=== PATIENT | female | born 1995 ===

== ENCOUNTER 2018-01-02 02:03 | Inpatient (IN) ==
[~2018-01-02 02:03] MED LIST: Famotidine 20 MG/2 ML VIAL IVP PRN; Naloxone 0.4 MG/ML INJ IVP PRN; Ondansetron 4 MG/2 ML VIAL IVP PRN; Ringers Solution, Lactated 1,000 ML ONE
[2018-01-02] MEDS ORDERED: CeFAZolin Syr 3,000MG/30 ML 3,000 MG/30 ML SYRINGE IVPB ONE (02:06)
[2018-01-02] MEDS ORDERED: Oxytocin 20 units/ LR 1000 mL 20 UNIT/1,000 ML BAG IVC ONE (02:06)
--- NOTE | 2018-01-02 02:12 | OB/GYN History & Physical ---
Date of Encounter: 01/02/18 Time of Encounter: 02:07 Assessment and Plan (1) Rh negative status during in third trimester Current visit: Yes Status: Acute Rhogam evaluation after delivery (2) Variable heart rate decelerations, antepartum Current visit: Yes Status: Acute IV bolus started Patient repositioned Dr. Goncalves notified (3) 39 weeks gestation of Current visit: No Status: Acute admit for delivery History of Present Illness Chief complaint: contractions HPI: Ms. Longo is a 22 year old female at 39w0d presents to labor and delivery with complaints with contractions that have continued since yesterday. Patient denies LOF or VB. Patient reports +FM. Patient reports she last ate at 1999. On admission recurrent variables noted with FHR dropping down to 90's. Irregular contractions noted. SVE per RN . Dr. Goncalves notified. Blood type: O Negative Rubella: Immune Hep B: Nonreactive GBS: Negative Past Med Surg Social Fam HX - Past Medical History Source: patient Medical history: no medical history Psychiatric history: no psych history - Past Surgical History Surgical History: other (tonsilectomy and cyst removed from neck) - Social History Smoking Status: Never smoker Alcohol use: none Drug use: none Current living situation: Home - Independent Activity Level: Independent ambulation Recent Out of Country Travel Within the Last 8 Weeks: No Exposure or Possible Exposure to Illness During Travel: No - Family History Father Adopted: No Living Status: Still Living Hx Family Endocrine Disorder: Yes (diabetes) Obstetrical History - Pregnancies : 1 Para: 0 Term: 0 : 0 Ab's: 0 Livin Medications and Allergies Vit Calc,Iron,Folic [ Vitamins] 1 tab PO DAILY 12/31/17 [ History] 3 Allergy/AdvReac Type Severity Reaction Status Date / Time No Known Allergies Allergy Verified 12/31/17 16:22 Review of System OB - Constitutional Constitutional ROS IM: no chills, no fever(s), no headache(s) - Cardiovascular Cardiovascular: no chest pain, no palpitations, no syncope - Respiratory Respiratory: no cough - Gastrointestinal Gastrointestinal: cramping, no abdominal pain, no constipation, no diarrhea, no heartburn, no nausea, no vomiting - Genitourinary Genitourinary: no abnormal vaginal bleeding, no dysuria, no flank pain, no urinary frequency, no urinary incontinence, no urinary urgency Exam - Constitutional Constitutional: well developed, well nourished, average body habitus - HEENT HEENT: Normocephaly, Mucus Membranes Moist - Neck Neck exam: full ROM, supple - Lungs Respiratory exam: CTAB - Cardiovascular Cardiovascular exam: RRR, +S1, +S2 - Abdomen Abdomen: Present: bowel sounds normal, gravid, non tender - Extremities Extremities exam: full ROM, normal capillary refill Deep Tendon Reflex Grade: 2+ Normal - Cervix Dilation: 1 Effacement: 80 Station: 0 - Uterus Uterus exam: Present: normal size, normal contour - Anus/Rectum Anus/Rectum: Present: normal perianal skin - Comments Comments: FHR baseline 150 bpm moderate variability with variables Results All other labs normal. - VTE Reasons for not Prescribing Prophylaxis: Treatment not Indicated - Low risk for VTE
[2018-01-02] MEDS ORDERED: Oxytocin 20 units/ LR 1000 mL 20 UNIT/1,000 ML BAG IVC SCH ×3 (02:15→04:16)
[2018-01-02] MEDS ORDERED: Ringers Solution, Lactated 1,000 ML IVC SCH ×2 (02:15→04:16)
[2018-01-02] MEDS ORDERED: Metoclopramide 10 MG/2 ML VIAL IVP ONE (02:32)
[2018-01-02] MEDS ORDERED: *HR* FentaNYL (PF) 100 MCG/2 ML VIAL ONE (02:35)
[2018-01-02] MEDS ORDERED: *HR* Propofol 200 MG/20 ML VIAL IVP ONE (02:35)
--- NOTE | 2018-01-02 02:39 | OB Labor Progress Note ---
Date of Encounter: 01/02/18 Time of Encounter: 02:30 Labor Progress Note - Subjective Subjective: patient continues to have decelerations but we could not see the contractions we did perform AROM and meconium was noted, she was internalized and she was noted to be be having contractions every 2 -3 min with repetitive late decelerations with tachycardia, emergent section called - Cervix Cervix: /-3 AROM mec fluid noted - Heart Tones Heart Tones: FHT's 160 with loss of variability with repetitive late decelerations - [place]: contractions every 2 min after IUPC placed - Plan Plan: prep for stat section
--- NOTE | 2018-01-02 02:59 | Anesthesia Evaluation PreOp ---
Date of Encounter: 01/02/18 Time of Encounter: 02:35 - Past History Planned Operation: Emergency Cardiac History: Denies any Significant Hx Pulmonary History: Denies Any Significant HX GRAIN BROKER AND MARKET OPERATOR History: Denies Any Significant HX Other Medical History: Denies Any Significant HX Anesthesia History: No Prior Anesthetic Complications, Past Anesthesia : Yes (, 39+2 weeks) Alcohol Use: none Drug use: none Medications and Allergies Vit Calc,Iron,Folic [ Vitamins] 1 tab PO DAILY 12/31/17 [ History] 3 Allergy/AdvReac Type Severity Reaction Status Date / Time No Known Allergies Allergy Verified 12/31/17 16:22 - Meds/Allergy Pre-op Review Medications Reviewed: Yes Allergies Reviewed: Yes Beta Blockers on Current Med List: No Anesthesia Exam Height: 5'4'' Weight: 123 kg NPO (# of Hours): 5.5 - HEENT Mallampati: III Teeth: Normal Oral Opening: Greater than 3 - GRAIN BROKER AND MARKET OPERATOR LOC: Oriented GRAIN BROKER AND MARKET OPERATOR Motor: Normal RUE, Normal LUE, Normal RLE, Normal LLE, Normal Face GRAIN BROKER AND MARKET OPERATOR Sensory: Normal: RUE, LUE, RLE, LLE, Face - Cardiac Rhythm: Regular Murmur: None - Pulmonary Breath Sounds: bilateral Clear Respiratory Effort: Symmetrical Anesthesia Assess/Plan ASA Score: 2, E Modified Torres Scale for Level of Consciousness: Cooperative, oriented, and tranquil Anesthetic Plan: General Monitoring Plan: Standard Monitors Recovery Plan: PACU
[2018-01-02] MEDS ORDERED: MORPHINE SUL Oral CONC 10 MG/0.5 ML ORAL.SYG SL PRN (03:13)
[2018-01-02] MEDS ORDERED: *HR* OxyCODONE Immed Rel 5 MG TABLET PO PRN (03:13)
[2018-01-02] MEDS ORDERED: Bupivacaine-MPF 0.25% 10 ML VIAL ONE (03:21)
[2018-01-02] MEDS ORDERED: *HR* Succinylcholine 200 MG/10 ML VIAL IVP ONE (03:23)
[2018-01-02] MEDS ORDERED: Dexamethasone 4 MG/ML VIAL ONE (03:23)
[2018-01-02] MEDS ORDERED: Ondansetron 4 MG/2 ML VIAL ONE (03:23)
[2018-01-02] MEDS ORDERED: Ketorolac 30 MG/ML VIAL ONE (03:24)
--- NOTE | 2018-01-02 03:43 | OB/GYN Procedure Note ---
Section - Date of procedure: 01/02/18 Preop diagnosis: other (Intrauterine at 39-2/7 weeks, category 3 strip ) Post-op diagnosis: same Procedure: primary low transverse Surgeon: Cy Goncalves Estimated blood loss (cc): 1,000 Was there an specimen preparation assistant present: No Anesthesiologist: Brennen Anthony Tapping Machine Operator: Clifton Payne Anesthesia Type: General section complications: none Disposition: L&D Recovery Room Specimens: Placenta (With incisional nevi) - (s) Infant A Delivery Date: 01/02/18 Delivery Time: 02:53 Presentation: vertex Position: LUBA Route of delivery: other ( section) Gender: Female Viability: Viable Pounds: 7 Ounces: 7 Gram Weight: 3.385 kg at 1 minute: 1 at 5 minutes: 6 at 10 minutes: 8 Shoulder Dystocia: not encountered Specimens collected: cord blood, venous cord gases, arterial cord gases Placenta: spontaneous Cord: nuchal cord, 3 umbilical vessels - Narrative Narrative: Patient is a 22-year-old 1 para 0 at 39-2/7 weeks who presents to labor and delivery with complaint of contractions every 10 minutes. Patient been seen day before with similar complaints of decreased movement NST was reactive she was making no cervical change she was discharged home she called the office earlier today with complaints of vaginal spotting and is having contractions she was advised if things are getting more uncomfortable to come back showing delivery. Patient states it is not get more uncomfortable so this evening and she decided to come back on them. Upon arrival to labor and delivery she was noted have repetitive decelerations but we could not tell what type they were because we could not shredder picker her contraction patent due to body habitus patient was wanted 2 cm we were able to artificially rupture her we was noted she had meconium and she was internalized she was noted at this time to be having what appeared to be repetitive late decelerations and heart tones were in the 160s with loss of [id number] variability. We did advise the patient she would need a section we were waiting for anesthesia to arrive patient started having very deep decelerations and a stat section was called. Procedure: Patient was taken the operating room where patient was placed in dorsal supine position she was prepped with Betadine then draped was applied. Timeout was then obtained and general anesthesia was administered. Once asleep a Pfannenstiel incision was then made an elliptical incision around a mole that was in the location of her incision. The incision was then carried down through the underlying tissue to the fascia was identified this was then extended laterally with the Diaz scissors. The superior and inferior edges the fascia were grasped tented up dissected off the rectus muscles. Rectus muscles were in midline parietal peritoneum was identified tented up and entered sharply. This is extended superiorly and inferiorly with Metzenbaum scissors bladder blade was inserted the vesicouterine peritoneum was identified tented up and entered sharply. This is extended laterally and the bladder flap was created digitally. The lower uterine segment and was incised with a scalpel and extended laterally with digital manipulation. The 's head was then delivered through the nuchal cord 1 loose and reduced the was fully delivered cord was clamped and cut and was handed off to waiting pediatric team. Cord gases and blood were then collected and placenta was then spontaneously delivered with a three-vessel cord. The uterus was exteriorized cleaned of all clots and debris then the lower uterine segment was closed using 0 Vicryl in a running locking stitch by a 2 layer closure. Good hemostasis gutters were cleaned of all clots and debris then copiously irrigated. The fascia was closed using a #1 stratafix in a running stitch subcutaneous tissue was closed using an 0 chromic in a running stitch and the skin was closed using a 4-0 Vicryl in a subcuticular manner. A PRIMEO dressing was applied and the patient was taken to the recovery room in stable condition. All needles and sponge counts were correct 3 she did receive preoperative antibiotics and she will be continued on for 24 hours postsurgery.
[2018-01-02] MEDS ORDERED: *HR* HYDROmorphone 20 MG/20 ML PCA IVC PRN (04:16)
[2018-01-02] MEDS ORDERED: Simethicone 80 MG TAB.CHEW PO PRN (04:16)
[2018-01-02] MEDS ORDERED: Sennosides 8.6 MG TABLET PO PRN (04:16)
[2018-01-02] MEDS ORDERED: Ondansetron 4 MG/2 ML VIAL IVP PRN (04:16)
[2018-01-02] MEDS ORDERED: Rho Immune Globulin 1,500 UNIT SYRINGE IM ONE (04:16)
[2018-01-02] MEDS ORDERED: Metoclopramide 10 MG/2 ML VIAL IVP PRN (04:16)
[2018-01-02] MEDS: *HR* OxyCODONE/APAP 5/325 TABLET PO PRN ×2 (16:51→21:33)
[2018-01-02] MEDS: ceFAZolin 2,000 MG in Water for inj. (sterile) 20 ML IVP SCH (21:33)
[2018-01-03] MEDS: *HR* OxyCODONE/APAP 5/325 TABLET PO PRN ×3 (01:24→22:54)
[2018-01-03] MEDS: Ibuprofen 600 MG TABLET PO PRN ×3 (01:24→16:35)
[2018-01-03 04:04] LABS: Basophils % 0.3 %; Eosinophils % 0.2 %; Hematocrit 29.9 % (35.3-44.9); Hemoglobin 9.7 g/dL (11.5-15.4); Immature Granulocytes % 0.5 % (0-4); Lymphocytes # 2.1 K/mcL (0.6-4.6); Lymphocytes % 18.6 %; Mean Corpuscular HGB Conc 32.4 g/dL (31.6-35.5); Mean Corpuscular Volume 89.5 fL (83.0-100.0); Mean Platelet Volume 11.9 fL (9.4-12.4); Monocytes # 0.9 K/mcL (0.0-1.3); Monocytes % 8.2 %; Neutrophils # 8.3 K/mcL (1.6-8.9); Platelet Count 169 K/mcL (140-400); Red Blood Count 3.34 M/mcL (3.82-4.97); Red Cell Distribution Width 14.3 % (11.5-14.5); Segmented Neutrophils % 72.2 %
[2018-01-03] MEDS: ceFAZolin 2,000 MG in Water for inj. (sterile) 20 ML IVP SCH (06:05)
--- NOTE | 2018-01-03 09:33 | OB/GYN Progress Note ---
Date of Encounter: 01/03/18 Time of Encounter: 09:31 - Assessment and Plan (1) Status post section Current Visit: Yes Status: Acute Stable postop day 1 Continue current management Anticipate DC tomorrow Subjective - Subjective Interval history: Vision state feels well. Pain well managed on by mouth pain medication, tolerating by mouth diet, voiding without difficulty. Patient reports: appetite normal, pain well controlled, ambulating normally : doing well Objective - Vital Signs Latest vital signs: Vital Signs Temp Pulse Pulse Resp BP Pulse Ox 01/03/18 08:10 97.3 F L 71 12 93/58 97 01/02/18 20:29 97.9 F 92 16 95/60 97 01/02/18 17:30 97.9 F 89 16 103/70 01/02/18 13:18 98.0 F 88 16 114/77 01/02/18 09:48 97.4 F L 86 86 16 112/74 97 Intake and Output 01/02/18 01/03/18 01/03/18 23:59 07:59 15:59 Intake Total 20 / 20 20 / 20 300 / 300 Output Total 800 / 800 1100 / 1100 Balance -780 / -780 -1080 / -1080 300 / 300 Intake: IV Fluids 20 / 20 20 / 20 Ancef 2,000 MG In Water for inj 20 / 20 20 / 20 . (sterile) 20 ML @ 200 mls/hr IVP Q8H [facility] Rx#:[id number] Oral 300 / 300 Output: Catheter 800 / 800 1100 / 1100 - Exam Lungs: bilateral: normal Chest: Normal S1, Normal S2 Extremities: Present: normal Abdomen: Present: normal appearance Incision: Present: dressed Uterus: Present: firm Comments: fundus u-1 - Labs Labs: Laboratory Results - last 24 hr 01/02/18 01/03/18 03:30 03:51 WBC 11.4 H RBC 3.34 L Hgb 9.7 L Hct 29.9 L MCV 89.5 MCH 29.0 MCHC 32.4 RDW 14.3 Plt Count 169 MPV 11.9 Immature Gran % 0.5 Seg Neutrophils % 72.2 Lymphocytes % 18.6 Monocytes % 8.2 Eosinophils % 0.2 Basophils % 0.3 Neutrophils # 8.3 Lymphocytes # 2.1 Monocytes # 0.9 Eosinophils # 0.0 Basophils # 0.0 Screen NEGATIVE Baby's Blood Type O RH POSITIVE Mother's Blood Type O RH NEGATIVE Rhogam Indicated YES Rhogam Req for Mother 1
[2018-01-03] MEDS: Prenatal Vit/FA 1 EACH TABLET PO SCH (10:15)
[2018-01-03] MEDS ORDERED: Rho Immune Globulin 1,500 UNIT SYRINGE IM ONE (13:33)
[2018-01-03] MEDS: CeFAZolin Premix DUPLEX 2,000 MG/50 ML BAG IVPB SCH ×2 (13:50→22:54)
[2018-01-04] MEDS: Ibuprofen 600 MG TABLET PO PRN ×2 (04:02→09:46)
[2018-01-04 08:54] VITALS: BP 112/80
--- NOTE | 2018-01-04 09:42 | Discharge Summary ---
Date of Encounter: 01/04/18 Time of Encounter: 09:38 - Discharge Diagnosis (1) Status post section Priority: Primary Status: Acute Comments: D/C today with follow up with OB as already scheduled (2) Mother currently breast-feeding Priority: Secondary Status: Acute Comments: Patient would like RX for breast pump No issues with at this time - Discharge Medications Prescriptions: OxyCODONE/APAP 5/325 [Percocet 5/325 MG] 1 each PO Q4HR PRN 5 Days #30 tablet PRN Reason: Pain Ibuprofen [Motrin] 600 mg PO Q6HR PRN #30 tablet PRN Reason: Cramping Azithromycin [Zithromax] 250 mg PO DAILY #5 tablet Breast Pump [BREAST PUMP] 1 each .ROUTE AD #1 each cephALEXin [Keflex] 500 mg PO BID #10 capsule Docusate [Colace] 100 mg PO BID #20 capsule Vit Calc,Iron,Folic [ Vitamins] 1 tab PO DAILY #30 tablet Home Medications: Azithromycin [Zithromax] 250 mg PO DAILY #5 tablet 01/04/18 [Rx] Breast Pump [BREAST PUMP] 1 each .ROUTE AD #1 each 01/04/18 [Rx] Docusate [Colace] 100 mg PO BID #20 capsule 01/04/18 [Rx] Ibuprofen [Motrin] 600 mg PO Q6HR PRN #30 tablet 01/04/18 [Rx] OxyCODONE/APAP 5/325 [Percocet 5/325 MG] 1 each PO Q4HR PRN 5 Days #30 tablet [Rx] Vit Calc,Iron,Folic [ Vitamins] 1 tab PO DAILY #30 tablet 01/04 [Rx] cephALEXin [Keflex] 500 mg PO BID #10 capsule 01/04/18 [Rx] Allergies/Adverse Reactions: 3 Allergy/AdvReac Type Severity Reaction Status Date / Time No Known Allergies Allergy Verified 01/02/18 05:55 Data Procedures and tests throughout hospitalization: Laboratory Tests 01/02/18 01/03/18 03:30 03:51 WBC 11.4 H RBC 3.34 L Hgb 9.7 L Hct 29.9 L MCV 89.5 MCH 29.0 MCHC 32.4 RDW 14.3 Plt Count 169 MPV 11.9 Immature Gran % 0.5 Seg Neutrophils % 72.2 Lymphocytes % 18.6 Monocytes % 8.2 Eosinophils % 0.2 Basophils % 0.3 Neutrophils # 8.3 Lymphocytes # 2.1 Monocytes # 0.9 Eosinophils # 0.0 Basophils # 0.0 Screen NEGATIVE Baby's Blood Type O RH POSITIVE Mother's Blood Type O RH NEGATIVE Rhogam Indicated YES Rhogam Req for Mother 1 Date of admission: 01/02/18 02:03 Primary care physician: PCP NONE Discharging clinician: Aroldo Gonsales Anticipated date of discharge: 01/04/18 - Patient Status Disposition: Home, Self-Care Condition: Good Functional capacity at discharge: independent ambulation - Discharge Instructions Follow Up With: Cy Goncalves DO [Partnered Physician] - - Diet and Activity Activity: increase activity as tolerated Diet: advance to your usual diet Hospital Course Reason for admission: section Delivery: section Episiotomy: none Laceration: none Other procedures: none complications: none baby: female Hospital course: Patient is a 22-year-old 1 para 0 at 39-2/7 weeks who presents to labor and delivery with complaint of contractions every 10 minutes. Patient been seen day before with similar complaints of decreased movement NST was reactive she was making no cervical change she was discharged home she called the office earlier today with complaints of vaginal spotting and is having contractions she was advised if things are getting more uncomfortable to come back showing delivery. Patient states it is not get more uncomfortable so this evening and she decided to come back on them. Upon arrival to labor and delivery she was noted have repetitive decelerations but we could not tell what type they were because we could not apple picker her contraction patent due to body habitus patient was wanted 2 cm we were able to artificially rupture her we was noted she had meconium and she was internalized she was noted at this time to be having what appeared to be repetitive late decelerations and heart tones were in the 160s with loss of gwwe-fu-whme variability. We did advise the patient she would need a section we were waiting for anesthesia to arrive patient started having very deep decelerations and a stat section was called. Procedure: Patient was taken the operating room where patient was placed in dorsal supine position she was prepped with Betadine then draped was applied. Timeout was then obtained and general anesthesia was administered. Once asleep a Pfannenstiel incision was then made an elliptical incision around a mole that was in the location of her incision. The incision was then carried down through the underlying tissue to the fascia was identified this was then extended laterally with the Diaz scissors. The superior and inferior edges the fascia were grasped tented up dissected off the rectus muscles. Rectus muscles were in midline parietal peritoneum was identified tented up and entered sharply. This is extended superiorly and inferiorly with Metzenbaum scissors bladder blade was inserted the vesicouterine peritoneum was identified tented up and entered sharply. This is extended laterally and the bladder flap was created digitally. The lower uterine segment and was incised with a scalpel and extended laterally with digital manipulation. The infant's head was then delivered through the nuchal cord 1 loose and reduced the infant was fully delivered cord was clamped and cut and was handed off to waiting pediatric team. Cord gases and blood were then collected and placenta was then spontaneously delivered with a three-vessel cord. The uterus was exteriorized cleaned of all clots and debris then the lower uterine segment was closed using 0 Vicryl in a running locking stitch by a 2 layer closure. Good hemostasis gutters were cleaned of all clots and debris then copiously irrigated. The fascia was closed using a #1 stratafix in a running stitch subcutaneous tissue was closed using an 0 chromic in a running stitch and the skin was closed using a 4-0 Vicryl in a subcuticular manner. A PRIMEO dressing was applied and the patient was taken to the recovery room in stable condition. All needles and sponge counts were correct 3 she did receive preoperative antibiotics and she will be continued on for 24 hours postsurgery. Time Attestation: Total time spent providing and/or coordinating discharge services: - VTE Reasons for not Prescribing Prophylaxis: Treatment not Indicated - Low risk for VTE Documentation of Mechanical Device: Intermittent pneumatic compression device - Attending Attestation I have seen and evaluated this patient independent of resident physician. I agree with the assessment and plan as outlined. Exam - Constitutional Vitals: Temp Pulse Resp BP Pulse Ox 98.2 F 86 16 112/80 98 01/04/18 08:53 01/04/18 08:53 01/04/18 08:53 01/04/18 08:53 01/04/18 08:53 General appearance IM: A&O X 3, no acute distress - Respiratory Respiratory exam: Present: CTAB - Cardiovascular Cardiovascular exam IM: Present: RRR - GI/Abdominal GI/Abdominal exam IM: soft Incision: normal, dry, intact - Uterus Position: 2 Fingers Below Umbilicus - Extremities Exam Extremities exam IM: Present: normal capillary refill, normal inspection - Neurological Exam Neurological exam: oriented X3, no focal deficits
[2018-01-04] MEDS: Prenatal Vit/FA 1 EACH TABLET PO SCH (09:46)
== END 2018-01-04 12:23 | disposition home or self-care (01) | DRG 766 ==
LOC: 1NENULAB → 1NENUOBS 06:11
PROVIDERS: ADMIT Advanced Practice Midwife; ATTEND Advanced Practice Midwife